=== PATIENT | female | born 1985 | race Caucasian/White ===

== ENCOUNTER 2023-08-22 14:53 | Inpatient (IN) | payer MEDICAID, SELFPAY ==
[2023-08-22] VITALS (9 sets, daily range): BP systolic 124–139; BP diastolic 73–83; PULSE 83–108; TEMP 36.9; O2SAT 99; BMI 31.1
[2023-08-22 16:17] LABS: Basophils Absolute Auto 0.01 K/uL (0.00-0.30); Basophils Percent Auto 0.1 % (0.0-3.0); Eosinophils Absolute Auto 0.12 K/uL (0.00-0.50); Eosinophils Percent Auto 1.1 % (0.0-7.0); Hematocrit 34.8 % (33.0-51.0); Hemoglobin* 11.3 gm/dL (12.0-16.0); Immature Granulocytes Abs Auto 0.05 K/uL (0.00-0.30); Immature Granulocytes Pct Auto 0.5 %; Lymphocytes Percent Auto 16.2 % (20-44); Mean Corpuscular HGB Conc 33 gm/dL (32-36); Mean Corpuscular Hemoglobin 30 pg (26-34); Mean Corpuscular Volume 93 fL (80-100); Monocytes Percent Auto 6.1 % (0.0-11.0); Platelet Count* 199 K/uL (140-440); Red Blood Count 3.75 m/uL (4.00-5.20); White Blood Count* 10.97 K/uL (4.50-11.00)
[2023-08-22 16:18] LABS: Slide Review Reflex No
[2023-08-22 16:29] LABS: Amphetamine Screen Urine Negative (Negative); Barbiturate Screen Urine Negative (Negative); Benzodiazepines Screen Urine Negative (Negative); Cannabinoid Screen Urine POSITIVE (Negative); Cocaine Screen Urine Negative (Negative); Methadone Screen Urine Negative (Negative); Methamphetamines Screen Urine Negative (Negative); Opiate Screen Urine Negative (Negative); Oxycodone Screen Urine Negative (Negative); Phencyclidine Screen Urine Negative (Negative); Tricyclic Antidepressant Urine Negative (Negative)
--- NOTE | 2023-08-22 20:16 | PM.OBHPLI ---
OB - H&P: HPI Labor/Induction History of Present Illness Time Seen by Provider: 20:16 Date Seen: 08/22/23 Chief Complaint: The patient is a 37 year old 6 para 5 at 39+4 weeks gestation by LMP c/w 10 wk US, who presents with SROM. Chief complaint: OB OUT Narrative: Karina Singh is a 37 year old female at 39+ 4 weeks by LMP consistent with 1st trimester ultrasound who presents with SROM. complicated by AMA, grand multiparity, history of hemorrhage, history of 2 prior late deliveries, medical marijuana use. Medical history also significant for history of MDD, EGD, PTSD, TBI asthma, remote history of polysubstance abuse. Patient had unremarkable level 2 ultrasound at 20 weeks. Low risk NIPT. GBS negative. Patient reports feeling a pop a trickle of fluid around 13:30 today. Started to experience mild contractions on the way to the hospital. Since arrival, she has had slowly increasing intensity, but contractions remain mild, cramping. Continues to have trickling fluid. History of Present Dating criteria: based on LMP care: good care Ultrasounds: normal 1st trimester US and normal mid trimester US Labs Blood type: O (+) positive Rubella: immune RPR/VDLR: nonreactive GBS status: negative HBsAG: negative Review of Systems Status of ROS: Reports: 10 or more systems reviewed and unremarkable except as noted in History and below Meds Home Medications and Allergies Allergies Allergy/AdvReac Type Severity Reaction Status Date / Time bupropion [From Wellbutrin] Allergy Severe Seizure Verified 08/22/23 20:37 acetaminophen [From Tylenol] AdvReac Mild nausea and Verified 08/22/23 20:37 vomiting OB - H&P: Exam Physical Exam: Vital signs: Pulse BP Pulse Ox 88 131/78 99 08/22/23 20:10 08/22/23 20:10 08/22/23 14:21 Narrative: General appearance: Well-appearing adult female. Alert, oriented and appropriate. Sitting up in hospital bed. HEENT: EOMI, no conjunctival injection or discharge. MMM. Neck: Supple. CV: RRR, no rubs, murmurs or extra heart sounds. Pulm: CTAB, no wheezes, rales or rhonchi. Abdomen: Gravid. MSK: Moving all extremities. Ext: Warm and well-perfused. No LE edema. Skin: No rashes appreciated over exposed skin. Neuro: Grossly normal strength and sensation. No focal deficits. Psych: Normal affect. Detailed Labor and Delivery Exam: Dilation (cm): 4 Effacement (%): 80 Cervix position: anterior Consistency: soft Contraction frequency (min): 4 Fetus (Single): Station: -1 Amniotic Membrane Status: AROM Amniotic Membrane Fluid Description: Clear Heart Rate Baseline: 135 OB - Results Labs Labs: Short CBC 08/22/23 Range/Units 16:12 WBC 10.97 (4.50-11.00) K/uL Hgb 11.3 L (12.0-16.0) gm/dL Hct 34.8 (33.0-51.0) % Plt Count 199 (140-440) K/uL OB - Problem Based A/P Additional Plan (1) Term : Problem details: SROM 1330 on 08/21. Forebag ruptured 2015 08/21. Clear fluid. Status: Acute Plan: - Latent labor. Continue expectant management. If remains inactive at 0000, consider initiating IV pitocin. - Intermittent monitoring - GBS negative - Anticipate vaginal delivery (2) History of hemorrhage: Status: Acute Plan - Plan pitocin, TXA, cytotec at delivery - 2 units crossmatched
[2023-08-22] MEDS: TRANEXAMIC ACID 100 MG/ML INJ 1000 MG IV (22:37)
[2023-08-22] MEDS: OXYTOCIN 30 unit/500 ML in NS 30 UNIT/500 ML BAG 300 UNIT IVPB (22:37)
--- NOTE | 2023-08-22 22:56 | W.PM.OBVAGDE ---
OB Procedure Vag Delivery Mother Details Mother Details: The patient is a 37 year-old, 6, Para 5, admitted on 08/22/23 at 39+4 Days gestation. SROM at home 1330 on day of admission. Cervix 3.5/60/-1 on admission. Contractions every 4 mins, mild. Patient labored in the tub. AROM of forebag at 1999. Subsequently contractions increased in frequency and intensity. Again labored in the tub. Patient felt increased pressure. Requested nitrous oxide for pain relief. Pushing began 2203, patient directed. 2222 found to be complete. : 6 Para: 5 Weeks Gestation: 39.4 Admission Date: 08/22/23 Additional Details Amniotic Membrane Status: SROM Amniotic Membrane Rupture Date: 08/22/23 Amniotic Membrane Rupture Time: 13:30 Amniotic Membrane Fluid Description: Clear Analgesia/Anesthesia Type: Nitrous Oxide Waterbirth: No Pitcoin: No Complete: 22:23 Pushin:04 Heart: heart tones during second stage were category II. Decelerations to mid 90s during pushing with rapid recovery. Delivery Details Delivery Date: 08/22/23 Delivery Time: 23:33 Route of delivery: Infant Gender: Female Viability: Alive; Heart Rate Present Position at Delivery: OA Delivery Details: Delivered over intact perineum via spontaneous vaginal delivery. was placed on maternal abdomen.? Cord was clamped and cut after a 30-60 second delay. Nose and mouth were bulb suctioned.? weight pending. 1 Minute Interval Total Score: 9 5 Minute Interval Total Score: 9 Additional Details Shoulder Dystocia: No Placenta Delivery Time: 22:39 Placental Delivery Description: Spontaneous Procedure Done: Global Blood Loss: 125 Laceration: None Blood Loss Measurement Type: QBL Bakri Used: No Cord Vessel Description: 3 Vessels Event Summary Status: Mother and were stable after delivery. Disposition: floor
[2023-08-23] VITALS (9 sets, daily range): BP systolic 123–145; BP diastolic 62–88; PULSE 65–94; RESP 16–20; TEMP 36.7–37.1; O2SAT 96–98
[2023-08-23 05:47] LABS: Hemoglobin* 9.9 gm/dL (12.0-16.0)
[2023-08-23] MEDS: DOCUSATE SODIUM 100 MG CAPSULE PO (08:53)
--- NOTE | 2023-08-23 15:23 | P.OBPN_ITS ---
OB - PN:Subj Subjective Time Seen by Provider: 08:00 Date Seen: 08/23/23 Interval history: PPD #1 after . Feeling well, no complaints. Bleeding like a heavy period. Baby is and latching well. Perineum is feeling ok. OB - PN: Obj Exam Physical Exam: Vital signs: Temp Pulse Resp BP Pulse Ox O2 Del Method 98.7 F 81 18 123/78 98 Room Air 08/23/23 08:13 08/23/23 12:44 08/23/23 12:44 08/23/23 13:24 08/23/23 12:44 08/23/23 12:44 Narrative: General appearance: Well-appearing adult female. Alert, oriented and appropriate. Sitting up in hospital bed. HEENT: EOMI, no conjunctival injection or discharge. MMM. Neck: Supple. CV: RRR, no rubs, murmurs or extra heart sounds. Pulm: CTAB, no wheezes, rales or rhonchi. Abdomen: Soft, non-tender. Fundus palpated 1 cm below the umbilicus. MSK: Moving all extremities. Ext: Warm and well-perfused. No LE edema. Skin: No rashes appreciated over exposed skin. Neuro: Grossly normal strength and sensation. No focal deficits. Psych: Normal affect. OB - PN: Obj Data Labs Labs: Laboratory Results - last 24 hr 08/22/23 08/22/23 08/23/23 16:12 Unknown 05:41 WBC 10.97 RBC 3.75 L Hgb 11.3 L 9.9 L Hct 34.8 MCV 93 MCH 30 MCHC 33 RDW Coeff of Nehal 14.0 Plt Count 199 Neut % (Auto) 76.0 H Lymph % (Auto) 16.2 L Wilkes % (Auto) 6.1 Eos % (Auto) 1.1 Baso % (Auto) 0.1 Neut # (Auto) 8.30 H Lymph # (Auto) 1.80 Wilkes # (Auto) 0.70 Eos # (Auto) 0.12 Baso # (Auto) 0.01 Abs Immat Gran (auto) 0.05 Imm/Tot Granulo (auto) 0.5 Urine Opiates Screen Negative Ur Oxycodone Screen Negative Urine Methadone Screen Negative Ur Barbiturates Screen Negative U Tricyclic Antidepress Negative Ur Phencyclidine Scrn Negative Ur Amphetamines Screen Negative U Methamphetamines Scrn Negative U Benzodiazepines Scrn Negative Urine Cocaine Screen Negative U Marijuana (THC) Screen POSITIVE A Ur Drug Screen Comment See Note Blood Type O Positive Antibody Screen NEGATIVE Crossmatch (AHG) See Detail OB - PN: A/P Delivery Assessment and Plan (1) Term : Problem details: SROM 1330 on 08/21. Forebag ruptured 2015 08/21. Clear fluid. . Status: Acute (2) History of hemorrhage: Problem details: Received pitocin and TXA. Minimal bleeding with delivery. Status: Acute Plan day: 1 Plan: routine care
[2023-08-24] VITALS: BP 133/79; PULSE 88; RESP 16; TEMP 36.8; O2SAT 98
[2023-08-24 07:36] VITALS: BP 128/83; PULSE 84; RESP 16; TEMP 36.5; O2SAT 97
--- NOTE | 2023-08-24 08:04 | P.DS_ITS ---
DS: Providers Provider Time Seen by Provider: 07:00 Date Seen: 08/24/23 Date of admission: 08/22/23 14:53 Primary care physician: Cordelia Garcia MD Admitting Clinician: Cordelia Garcia MD Consults: 08/22/23 14:55 Consult to Program Management Manager [CONS] Routine Comment: Reason for Consult:: Substance Abuse Screening Attending Physician on discharge: Radha Singh MD Date of Discharge: 08/24/23 DS: Diagnosis Discharge Diagnosis (1) Vaginal delivery: Status: Acute Exam Const: Vital Signs, click to edit/add: Vital Signs - 24 hr 08/23/23 08:13 08/23/23 12:44 08/23/23 13:24 Temperature 98.7 F Pulse Rate [Pulse Oximeter] 65 81 Respiratory Rate 18 18 Blood Pressure [Le ft Arm] 124/86 144/84 H 123/78 Pulse Oximetry 97 98 Oxygen Delivery Me thod Room Air Room Air 08/23/23 16:30 08/23/23 21:46 08/24/23 00:00 Temperature 98.3 F 98.3 F 98.3 F Pulse Rate [Pulse Oximeter] 66 88 88 Respiratory Rate 20 16 16 Blood Pressure [Le ft Arm] 128/88 133/82 133/79 Pulse Oximetry 96 97 98 Oxygen Delivery Me thod Room Air Room Air Room Air 08/24/23 07:36 Temperature 97.7 F Pulse Rate [Pulse Oximeter] 84 Respiratory Rate 16 Blood Pressure [Le ft Arm] 128/83 Pulse Oximetry 97 Oxygen Delivery Me thod Room Air Common normals: no apparent distress General appearance: cooperative HENMT: Common normals: normocephalic Head and scalp: normocephalic Neck & C-Spine: Common normals: full ROM Chest: Common normals: inspection of chest normal Resp: Common normals: normal respiratory effort, no retractions and clear to auscultation bilaterally Auscultation: clear to auscultation bilaterally Cardio: Common normals: regular rhythm, S1 normal heart sound and S2 normal heart sound Rhythm: regular rhythm Heart sounds: S1 normal and S2 normal; no murmurs GI: Common normals: Normal to inspection, nondistended, normoactive bowel sounds present, soft to palpation and non-tender Palpation: soft : OB/external & speculum: Yes deferred Uterus: 2/U Uterus palpation: uterus nontender Extremity: Common normals: normal to inspection OB - DS: Summary Hospital Course Hospital Course: The patient is a 37 year old G 6 P 6 at 39.4 weeks gestation that was admitted to the Center on 08/22/23 for SROM and labor. She had an uncomplicated vaginal delivery. She delivered a viable female . She is breast feeding. the patient has done well. Peripartum Data delivery method: Vaginal Laceration description: None [place] Gender: Female Infant Discharge Plan: Home Status at Discharge Functional status at discharge: independent ambulation Overall status at discharge: patient is back to baseline Time Spent with Patient Time attestation: Total time spent providing and/or coordinating discharge services: Time spent: Less than 30 minutes Discharge Plan Discharge Disposition: Home, Self-Care Date of Admission: 08/22/23 14:53 Attending Provider on Discharge: Radha Singh Primary Care Provider: Cordelia Garcia I Condition: Stable Anticipated Discharge Date/Time: 08/24/23 08:02 Discharge Medications: Continued acetaminophen 500 mg capsule 1,000 mg PO QID PRN albuterol sulfate 2.5 mg /3 mL (0.083 %) solution for nebulization 3 mg inhalation Q4H PRN albuterol-budesonide 90-80 mcg/actuation HFA aerosol inhaler 1 - 2 inh inhalation Q4H PRN ipratropium-albuterol 0.5 mg-3 mg(2.5 mg base)/3 mL solution for nebulization 3 ml inhalation Q6H PRN Rx Instructions: for 3 doses epinephrine [EpiPen] 0.3 mg/0.3 mL auto-injector 0.3 ml IM Q5-15M PRN Rx Instructions: do not exceed 3 doses per episode fluticasone propionate 110 mcg/actuation HFA aerosol inhaler 1 inh inhalation BID Medical Cannibus 2 - 3 puff Inhaled Q4H PRN PNV cmb#[id number]-ferrous fumarate-FA [] 28 mg iron- 800 mcg tablet 1 tab PO DAILY valacyclovir [Valtrex] 1 gram tablet 1,000 mg PO DAILY Discharge Orders: Discharge Order (Routine); Ordered 08/24/23 Ordered By: Radha Singh Consulting provider completed their portion of the discharge: Yes Patient Education: OB Vaginal/Breast Feeding Activity Level: Activity as Tolerated Activity Detail: Pelvic rest x 6 weeks, nothing in the vagina. Discharge Diet: Regular Follow Up Appointments: Cordelia Garcia MD [Primary Care Provider] - Forms: Outline App Info Instructions Discharge Comments: Follow up for [address] Garcia, sooner with concerns.
== END 2023-08-24 09:20 | disposition home or self-care (01) | DRG 806 ==
LOC: OB OUT 14:54 → OB 20:05
PROVIDERS: Admitting Provider Family Medicine; PCP Family Medicine; Visit Provider Family Medicine
DX: O99.344 Other mental disorders complicating childbirth (principal); F33.1 Major depressive disorder, recurrent, moderate; Z37.0 Single live birth; F43.10 Post-traumatic stress disorder, unspecified; O99.892 Other specified diseases and conditions complicating childbirth; F41.1 Generalized anxiety disorder; Z79.899 Other long term (current) drug therapy; Z3A.39 39 weeks gestation of pregnancy
CPT/HCPCS: 36415; 80306; 85018; 85025; 86592; 86850; 86900; 86901; 86922; G0463; A9270